=== PATIENT | male | born 1965 | race Caucasian/White ===

== ENCOUNTER 2019-04-04 06:39 | Emergency (ER) | payer SELFPAY ==
[~2019-04-04] VITALS: Ht 170.2 cm; Wt 102.1 kg
--- NOTE | 2019-04-04 07:11 | ED EENT ---
History of Present Illness General Stated Complaint: SWOLLEN & SORE THROAT-HARD TO SWOLLOW Source: patient, family Exam Limitations: no limitations History of Present Illness Date Seen by Provider: Apr 04, 2019 Time Seen by Provider: 07:05 Initial Comments This 53-year-old white male presents with painless swelling of his posterior oral pharynx. The patient has had similar but less intense episodes in the past and resolved essentially spontaneously. The patient has taken ibuprofen and cold water in the past. Patient denies medications, known allergies, associated upper respiratory symptoms, shortness of breath or wheezing, nausea or vomiting, diarrhea or dysuria. He has had no ear pain, fever, photophobia or stiff neck. Allergies and Home Medications Allergies Coded Allergies: No Known Drug Allergies (Unverified , 04/04/19) Patient Home Medication List Home Medication List Reviewed: Yes Review of Systems Review of Systems Constitutional: No chills, No fever Eyes: Denies Photophobia Ears: Denies Dizziness, Denies Bloody Discharge Nose: denies epistaxis Mouth: denies clots, denies swelling Throat: see HPI; denies pain; swelling Respiratory: No cough Cardiovascular: No chest pain Gastrointestinal: No abdominal pain, No diarrhea, No nausea, No vomiting Musculoskeletal: No back pain Skin: no symptoms reported Neurological: No Symptoms Reported Hematologic/Lymphatic: No Symptoms Reported Immunological/Allergic: no symptoms reported Past Gyjywfv-Lbdavk-Tvkbow Hx Past Med/Social Hx: Reviewed Nursing Past Med/Soc Hx Patient Social History Recent Foreign Travel: No Contact w/Someone Who Travel: No Physical Exam Vital Signs Vital Signs - First Documented 04/04/19 07:12 Temp 97.9 Pulse 92 Resp 20 B/P (MAP) 183/126 (145) Pulse Ox 96 O2 Delivery Room Air Height, Weight, BMI Height: '" Weight: lbs. oz. kg; BMI Method: General Appearance: WD/WN, no apparent distress Eyes: bilateral eye normal inspection Ears: bilateral ear auricle normal Nose: normal inspection Mouth/Throat: No excessive drooling, No mandibular swelling; pharynx swelling Cardiovascular: regular rate, rhythm Respiratory: lungs clear Gastrointestinal: normal bowel sounds Neurologic/Psychiatric: no motor/sensory deficits, alert, normal mood/affect, oriented x 3 Skin: normal color, warm/dry Progress/Results/Core Measures Results/Orders Lab Results Laboratory Tests Test 04/04/19 06:54 04/04/19 07:54 Range/Units White Blood Count 6.4 4.3-11.0 10^3/uL Red Blood Count 5.05 4.35-5.85 10^6/uL Hemoglobin 16.3 13.3-17.7 G/DL Hematocrit 47 40-54 % Mean Corpuscular Volume 93 80-99 FL Mean Corpuscular Hemoglobin 32 25-34 PG Mean Corpuscular Hemoglobin Concent 35 32-36 G/DL Red Cell Distribution Width 13.2 10.0-14.5 % Platelet Count 163 130-400 10^3/uL Mean Platelet Volume 10.3 7.4-10.4 FL Neutrophils (%) (Auto) 69 42-75 % Lymphocytes (%) (Auto) 18 12-44 % Monocytes (%) (Auto) 9 0-12 % Eosinophils (%) (Auto) 3 0-10 % Basophils (%) (Auto) 0 0-10 % Neutrophils # (Auto) 4.4 1.8-7.8 X 10^3 Lymphocytes # (Auto) 1.2 1.0-4.0 X 10^3 Monocytes # (Auto) 0.6 0.0-1.0 X 10^3 Eosinophils # (Auto) 0.2 0.0-0.3 10^3/uL Basophils # (Auto) 0.0 0.0-0.1 10^3/uL Group A Streptococcus Screen NEGATIVE NEGATIVE Sodium Level 140 135-145 MMOL/L Potassium Level 4.0 3.6-5.0 MMOL/L Chloride Level 106 98-107 MMOL/L Carbon Dioxide Level 19 L 21-32 MMOL/L Anion Gap 15 H 5-14 MMOL/L Blood Urea Nitrogen 18 7-18 MG/DL Creatinine 0.84 0.60-1.30 MG/DL Estimat Glomerular Filtration Rate > 60 BUN/Creatinine Ratio 21 Glucose Level 88 70-105 MG/DL Calcium Level 9.4 8.5-10.1 MG/DL Corrected Calcium 9.2 8.5-10.1 MG/DL Total Bilirubin 0.4 0.1-1.0 MG/DL Aspartate Amino Transf (AST/SGOT) 37 H 5-34 U/L Alanine Aminotransferase (ALT/SGPT) 31 0-55 U/L Alkaline Phosphatase 79 40-136 U/L Total Protein 7.5 6.4-8.2 GM/DL Albumin 4.3 3.2-4.5 GM/DL My Orders Orders - ALPHONSE VEGA MD Cbc With Automated Diff (04/04/19 07:02) Rapid Strep A Screen (04/04/19 07:02) Methylprednisolone Sod Succ (Solu-Medrol (04/04/19 07:15) Diphenhydramine Injection (Benadryl Inje (04/04/19 07:15) Famotidine Injection (Pepcid Injection) (04/04/19 07:15) Iv Heplock-Insert (Order) (04/04/19 07:12) Complement C4 Serum (04/04/19 07:22) Erythrocyte Sedimentation Rate (04/04/19 07:22) Comprehensive Metabolic Panel (04/04/19 07:22) Furosemide Injection (Lasix Injection) (04/04/19 08:00) Medications Given in ED Current Medications Medications Dose Ordered Sig/Karen Route Start Time Stop Time Status Last Admin Dose Admin Diphenhydramine HCl 25 mg ONCE ONCE IVP 04/04/19 07:15 04/04/19 07:16 DC 04/04/19 07:26 25 MG Famotidine 20 mg ONCE ONCE IVP 04/04/19 07:15 04/04/19 07:16 DC 04/04/19 07:26 20 MG Furosemide 40 mg ONCE ONCE IVP 04/04/19 08:00 04/04/19 08:01 DC 04/04/19 08:01 40 MG Methylprednisolone Sodium Succinate 125 mg ONCE ONCE IVP 04/04/19 07:15 04/04/19 07:16 DC 04/04/19 07:26 125 MG Vital Signs/I&O 04/04/19 07:12 Temp 97.9 Pulse 92 Resp 20 B/P (MAP) 183/126 (145) Pulse Ox 96 O2 Delivery Room Air Progress Progress Note : Time: 07:10 Progress Note The patient demonstrated significant uvular edema. There was associated moderate soft tissue swelling of the soft palate. The tonsils were not enlarged and there was no exudate. The patient was not in respiratory distress and was handling his airway and swallowing without difficulty. Patient received IV Solu-Medrol, Benadryl, and Pepcid. 830 a.m. The patient's uvular edema was symptomatically improved with the steroids and antihistamines. I prescribed Benadryl, Pepcid, and prednisone for the next 3 days. Patient's blood pressure was markedly elevated in the emergency department. The patient was given 40 mg Lasix IV and placed on 50 mg of hydrochlorothiazide daily. I patient follow up closely with his physician, Dr. Flores, this week. I patient returning any further problems or questions. Departure Impression Primary Impression: Angio-edema Qualified Codes: T78.3XXA - Angioneurotic edema, initial encounter Additional Impression: Elevated blood pressure reading Disposition: HOME, SELF-CARE Condition: Improved Departure-Patient Inst. Decision time for Depature: 08:30 Referrals: NO,LOCAL PHYSICIAN (PCP) Primary Care Physician ROMELIA FLORES MD Patient Instructions: Angioedema, High Blood Pressure (DC) Add. Discharge Instructions: Benadryl, Pepcid, and prednisone as prescribed for angioedema. Hydrochlorothiazide for elevated blood pressure. Close follow-up Dr. Flores this week. Return if any problems or questions. Scripts Hydrochlorothiazide (Hydrochlorothiazide) 50 Mg Tablet 50 MG PO DAILY, #30 TAB Prov: ALPHONSE VEGA MD 04/04/19 Prednisone (Prednisone) 20 Mg Tab 40 MG PO DAILY for 7 Days, #6 TAB 0 Refills Prov: ALPHONSE VEGA MD 04/04/19 Diphenhydramine HCl (Benadryl) 25 Mg Capsule 25 MG PO QID for Throat Pain, #20 CAP Prov: ALPHONSE VEGA MD 04/04/19 Famotidine (Pepcid) 20 Mg Tablet 20 MG PO BID, #20 TAB Prov: ALPHONSE VEGA MD 04/04/19 ALPHONSE VEGA MD Apr 04, 2019 07:11
[2019-04-04] MEDS ORDERED: diphenhydrAMINE 50 MG/ML INJ (BENADRYL) IVP ONE (07:15)
[2019-04-04] MEDS ORDERED: FAMOTIDINE 20MG/2ML IV (PEPCID) IVP ONE (07:15)
[2019-04-04] MEDS ORDERED: methylPREDNISolone 125 MG (Solu-MEDROL) VIAL IVP ONE (07:15)
[2019-04-04 07:19] LABS: BASOPHILS % (AUTO) 0 % (0-10); EOSINOPHILS # (AUTO) 0.2 10^3/uL (0.0-0.3); EOSINOPHILS % (AUTO) 3 % (0-10); HEMATOCRIT 47 % (40-54); HEMOGLOBIN 16.3 G/DL (13.3-17.7); LYMPHOCYTES # (AUTO) 1.2 X 10^3 (1.0-4.0); LYMPHOCYTES % (AUTO) 18 % (12-44); MEAN CORPUSCULAR HEMOGLOBIN 32 PG (25-34); MEAN CORPUSCULAR HGB CONC 35 G/DL (32-36); MEAN CORPUSCULAR VOLUME 93 FL (80-99); MEAN PLATELET VOLUME 10.3 FL (7.4-10.4); MONOCYTES # (AUTO) 0.6 X 10^3 (0.0-1.0); MONOCYTES % (AUTO) 9 % (0-12); NEUTROPHILS # (AUTO) 4.4 X 10^3 (1.8-7.8); NEUTROPHILS % (AUTO) 69 % (42-75); PLATELET COUNT 163 10^3/uL (130-400); RED CELL DISTRIBUTION WIDTH 13.2 % (10.0-14.5); WHITE BLOOD COUNT 6.4 10^3/uL (4.3-11.0)
[2019-04-04] MEDS ORDERED: FUROSEMIDE 40 MG/4 ML INJ (LASIX) IVP ONE (08:00)
[2019-04-04 08:25] LABS: ALANINE AMINOTRANSFERASE 31 U/L (0-55); ALBUMIN 4.3 GM/DL (3.2-4.5); ALKALINE PHOSPHATASE 79 U/L (40-136); BILIRUBIN,TOTAL 0.4 MG/DL (0.1-1.0); BUN/CREATININE RATIO 21; CALCIUM 9.4 MG/DL (8.5-10.1); CARBON DIOXIDE 19 MMOL/L (21-32); CHLORIDE 106 MMOL/L (98-107); CREATININE SERUM 0.84 MG/DL (0.60-1.30); GFR ESTIMATED > 60; GLUCOSE 88 MG/DL (70-105); SODIUM 140 MMOL/L (135-145); TOTAL PROTEIN 7.5 GM/DL (6.4-8.2)
[2019-04-04] MEDS ORDERED: HYDR50TA3 PO (08:36)
[2019-04-04] MEDS ORDERED: PRD20T PO (08:36)
[2019-04-04] MEDS ORDERED: FAMO-119 PO (08:36)
[2019-04-04] MEDS ORDERED: DIPH25CA79 PO (08:36)
[2019-04-04 08:44] VITALS: BP 185/116
== END 2019-04-04 08:44 | disposition home or self-care (01) ==
LOC: EDUNIT# 06:39 → ER 06:44
DX: T78.3XXA Angioneurotic edema, initial encounter (principal); R03.0 Elevated blood-pressure reading, without diagnosis of hypertension
CPT/HCPCS: 36415; 80053; 85025; 85652; 86160; 87430; 96374; 96375